=== PATIENT | female | born 1985 | race Caucasian/White ===

== ENCOUNTER → 2017-01-08 | Outpatient (CLI) | payer BC, OTHER ==
--- NOTE | 2017-01-08 14:29 | KCIC ---
Obstetrical ultrasound first trimester HISTORY: Unknown dates. . Transabdominal scan There appears to be a gestational sac but visualization is limited. Maternal ovaries are not visualized clearly. Transvaginal scan There is a gestational sac, containing a pole and a yolk sac. Cardiac activity is documented with a heart rate of 130 bpm. [place]-rump length corresponds with 6 weeks 6 days and an estimated due date of August 28, 2017. Uterus measures 9.7 cm longitudinal by 4.9 cm AP by 6.2 cm wide. There is a small crescentic hypoechogenic region adjacent to the gestational sac compatible with a small area of subchorionic hemorrhage measuring 10 mm in long axis. Maternal right ovary measures 2.5 cm long axis with positive blood flow. Maternal left ovary contains a 6.3 cm cyst. Positive blood flow to the left ovary. No significant free fluid. IMPRESSION: 1. Single viable intrauterine is identified with estimated age of 6 weeks 6 days. 2. Small area of subchorionic hemorrhage noted. 3. Large left ovarian cyst, 6.3 cm diameter. Electronically signed by: Harrison Sahu MD (01/08/2017 2:26 PM) [facility]
== END | disposition home or self-care (01) ==
LOC: KCIC US 12:02
PROVIDERS: ATTEND Obstetrics & Gynecology
DX: O34.81 Maternal care for other abnormalities of pelvic organs, first trimester (principal); O20.8 Other hemorrhage in early pregnancy; Z3A.01 Less than 8 weeks gestation of pregnancy
CPT/HCPCS: 76801; 76817